=== PATIENT | male | born 2000 | race Caucasian/White ===

== ENCOUNTER 2023-02-13 15:22 | Emergency (ER) | payer OTHER, SELFPAY ==
[2023-02-13 16:09] VITALS: BP 143/83; PULSE 82; RESP 16; TEMP 36.6; O2SAT 98; BMI 40.1
--- NOTE | 2023-02-13 18:55 | ED_ITS ---
HPI - Wound/Laceration <Alirio Gautam PA-C - Last Filed: 02/13/23 18:59> General Chief Complaint: Wound/Laceration Stated Complaint: Hand inj Time Seen by Provider: 02/13/23 18:16 Source: patient Mode of arrival: Ambulatory History of Present Illness HPI narrative: 22-year-old male with no reported past medical history presents to the ED status post a left hand injury sustained at work just prior to arrival. Patient had a piece of metal accidentally appears the area between his left thumb and index finger. Last tetanus is unknown. Patient denies numbness, tingling, weakness. Patient is able to move all fingers, however it is painful due to the injury. Related Data Allergies Allergy/AdvReac Type Severity Reaction Status Date / Time No Known Drug Allergies Allergy Verified 02/13/23 16:12 Review of Systems <Alirio Gautam PA-C - Last Filed: 02/13/23 18:59> Review of Systems ROS Unobtainable: All systems reviewed & are unremarkable except as noted in HPI and below Constitutional Constitutional: Denies chills, Denies fatigue, Denies fever(s), Denies frequent falls, Denies lethargy and Denies weakness Eyes Eyes: Denies change in vision, Denies eye discharge, Denies irritation and Denies loss of vision ENT Ears, Nose, Mouth, and Throat: Denies change in voice, Denies dizziness, Denies neck pain, Denies sore throat and Denies throat swelling Cardiovascular Cardiovascular: Denies chest pain, Denies irregular heart rhythm, Denies lig htheadedness, Denies palpitations, Denies dyspnea, Denies dyspnea on exertion and Denies orthopnea Respiratory Respiratory: Denies cough, Denies dyspnea, Denies dyspnea on exertion and Denies wheezing Gastrointestinal Gastrointestinal: Denies abdominal pain, Denies change in bowel habits, Denies diarrhea, Denies nausea and Denies vomiting Genitourinary Genitourinary: Denies hematuria, Denies flank pain, Denies urinary incontinence and Denies urinary urgency Musculoskeletal Musculoskeletal: Denies back pain, Denies muscle weakness, Denies neck pain, Denies numbness and Denies tingling Integumentary/Breasts Skin/Breast: Denies pruritus, Denies erythema, Denies rash and Reports wounds Neurologic Neurologic: Denies behavioral changes, Denies confusion, Denies dizziness, Denies frequent falls, Denies loss of vision, Denies numbness, Denies tingling and Denies weakness Psychiatric Psychiatric: Denies anxiety, Denies behavioral changes, Denies confusion, Denies depression, Denies homicidal ideation and Denies suicidal ideation Endocrine Endocrine: Denies fatigue, Denies flushing and Denies palpitations Hematologic/Lymphatic Hematologic/Lymphatic: Denies easy bruising Allergic/Immunologic Allergic/Immunologic: Denies urticaria, Denies throat swelling and Denies wheezing Patient History <Alirio Gautam PA-C - Last Filed: 02/13/23 18:59> Social History Smoking Status: Current every day smoker Smoking Status: Current every day smoker alcohol intake frequency: a few times a month Substance Use Type: marijuana Exam <Alirio Gautam PA-C - Last Filed: 02/13/23 18:59> Narrative Exam Narrative: Const General:?cooperative, healthy appearing and comfortable HENWA Head:?normal to inspection Ears:?hearing grossly normal bilaterally Nose:?external nose normal Face and sinus:?normal facial exam and sinuses nontender Mouth:?oral mucosae normal Throat:?posterior oropharynx normal Eyes General:?appearance normal, both eyes and all related structures Neck Neck:?normal visual inspection and no lymphadenopathy noted Resp Effort & Inspection:?normal respiratory effort Auscultation:?clear to auscultation bilaterally Cardio Rate:?regular rate Rhythm:?regular rhythm Integumentary There is a 1 cm linear laceration between the left thumb and index finger. No underlying structures visualized on exam. No signs of foreign body. Strength and sensation is intact. There is full range of motion. Patient is neurovascularly intact. Neuro General:?patient alert, patient awake and patient oriented x3 Initial Vital Signs Initial Vital Signs: Vital Signs Temperature 98 F 02/13/23 16:09 Pulse Rate 82 02/13/23 16:09 Respiratory Rate 16 02/13/23 16:09 Blood Pressure 143/83 H 02/13/23 16:09 Pulse Oximetry 98 02/13/23 16:09 Oxygen Delivery Method Room Air 02/13/23 16:09 <Elmo Kelly DO - Last Filed: 02/13/23 19:03> Initial Vital Signs Initial Vital Signs: Vital Signs Temperature 98 F 02/13/23 16:09 Pulse Rate 82 02/13/23 16:09 Respiratory Rate 16 02/13/23 16:09 Blood Pressure 143/83 H 02/13/23 16:09 Pulse Oximetry 98 02/13/23 16:09 Oxygen Delivery Method Room Air 02/13/23 16:09 Procedures <USMAN Mendez Last Filed: 02/13/23 18:59> Laceration Repair Laceration 1: Site: hand Side (If applicable): left Size (cm): 1 Description: linear Depth: simple, single layer Local Anesthetic: lidocaine 1% Amount of anesthesia used (mL): 2 Pre-repair: wound explored, irrigated extensively and deep structures intact Skin layer closed with: vicryl Skin layer suture size: 5-0 Number of sutures: 3 Technique: simple, interrupted Course <USMAN Mendez Last Filed: 02/13/23 18:59> Orders Ordered: Discontinued Medications Diphtheria/Tetanus/Acell Pertussis (Tet,Diph,Pertuss(Acell),Vac/Pf 0.5 Ml Syringe) 0.5 ml IM .ONCE ONE Stop: 02/13/23 18:54 Vital Signs Vital signs: Vital Signs - 8 hr 02/13/23 16:09 Temperature 98 F Pulse Rate 82 Respiratory Rate 16 Blood Pressure 143/83 H Pulse Oximetry 98 Oxygen Delivery Method Room Air <Elmo Kelly DO - Last Filed: 02/13/23 19:03> Orders Ordered: Discontinued Medications Diphtheria/Tetanus/Acell Pertussis (Tet,Diph,Pertuss(Acell),Vac/Pf 0.5 Ml Syringe) 0.5 ml IM .ONCE ONE Stop: 02/13/23 18:54 Vital Signs Vital signs: Vital Signs - 8 hr 02/13/23 16:09 Temperature 98 F Pulse Rate 82 Respiratory Rate 16 Blood Pressure 143/83 H Pulse Oximetry 98 Oxygen Delivery Method Room Air MDM - Wound/Laceration <USMAN Mendez Last Filed: 02/13/23 18:59> MDM Narrative Medical decision making narrative: 22-year-old male with no reported past medical history presents to the ED status post a left hand injury sustained at work just prior to arrival. There is a 1 cm linear laceration between the left thumb and index finger. No underlying structures visualized on exam. No suspicion for foreign bodies based on history and exam. Repaired laceration with 3 sutures. Sutures will need to be removed in 7-10 days. Discussed signs of infection and wound care with patient. Patient's Tdap was updated today. ED return precautions were discussed with patient. Patient verbalized understanding. Medical records reviewed: Yes Discharge Plan Departure Patient Disposition: Home Clinical Impression: Laceration Instructions: DI for Laceration Repair Activity Restrictions/Additional Instructions: You were evaluated in the ED today for a left hand injury. The laceration was repaired with 3 sutures. The sutures will need to be removed in 7 to 10 days. You may return to the ED, go to a walk-in clinic or see your PCP for suture removal. Please watch for signs of infection including worsening redness, pain, warmth, swelling, discharge. Please return to the ED if you note any signs of infection. Please keep the wound clean and dry for the 1st 24 hours, following which you may wash gently with soap and water and completely dry before applying a dressing. Please do not keep any dressings on for any length of time. Your tetanus shot was updated today and is good for the next 10 years. Stand Alone Forms: Patient Portal/API <Elmo Kelly, DO - Last Filed: 02/13/23 19:03> Cosign ED Attending Cosignature Attestation: Dr Kelly Co-Sign Statement: I was available for consultation during this patient's emergency department visit. This chart is signed by myself for administrative purposes only. I did not have direct contact with this patient during this visit. They were seen independently by the APC.
[2023-02-13] MEDS: TET,DIPH,PERTUSS(ACELL),VAC/PF 0.5 ML SYRINGE IM (19:06)
[2023-02-13 19:08] VITALS: BP 141/78; PULSE 71; RESP 19; O2SAT 95
== END 2023-02-13 19:08 | disposition home or self-care (01) ==
PROVIDERS: Emergency Provider Student in an Organized Health Care Education/Training Program
DX: S61.412A Laceration without foreign body of left hand, initial encounter (principal); X58.XXXA Exposure to other specified factors, initial encounter; Y99.0 Civilian activity done for income or pay; Z23 Encounter for immunization
CPT/HCPCS: 12001; 90471; 99283; 90715